=== PATIENT | female | born 1985 | race Caucasian/White ===

== ENCOUNTER 2018-12-05 16:55 | Emergency (ER) | payer MEDICAID ==
[2018-12-05] MEDS ORDERED: ONDANSETRON HCL IV 4 MG/2 ML VIAL IV ONE (17:11)
[2018-12-05] MEDS ORDERED: 0.9 % SODIUM CHLORIDE 1,000 ML BAG IV ONE (17:11)
[2018-12-05] MEDS ORDERED: HYDROMORPHONE HCL 2 MG/ML VIAL IVP ONE (17:11)
--- NOTE | 2018-12-05 17:11 | Emergency Department Record ---
History of Present Illness - General Chief Complaint: Abdominal Pain Stated Complaint: STOMACH PAIN Time Seen by Provider: 12/05/18 17:04 Source: Patient Mode of Arrival: Ambulatory Limitations: No limitations - History of Present Illness Initial Comments: The patient is here due to abdominal pain over the last 4-5 hours. The pain onset was fairly sudden and mainly in the upper abdomen. She has had significant nausea and vomiting with the pain. The patient has had no fever, dysuria, or diarrhea. She did have Gastric Bypass surgery and at the same time a hiatal hernia fixed in september at [facility] by Dr. Adrian. The patient denies any other abdominal surgeries. She also had milder similar pain a week ago but it resolved. MD Complaint: Abdominal pain Onset/Timin -: Hour(s) Associated Symptoms: Vomiting - Related Data Home Medications Medication Instructions Recorded Confirmed Last Taken Hydroxyzine HCl 1 tab PO DAILY 12/05/18 12/05/18 Unknown Lisdexamfetamine Dimesylate 30 mg PO DAILY 12/05/18 12/05/18 Unknown [Vyvanse] Pantoprazole Sodium [Protonix] 40 mg PO DAILY 12/05/18 12/05/18 Unknown Allergies Allergy/AdvReac Type Severity Reaction Status Date / Time bupropion HCl Allergy Intermediate hives Verified 12/05/18 17:08 [From Wellbutrin] Travel Screening - Travel/Exposure Within Last 30 Days Have you traveled within the last 30 days?: No - Travel/Exposure Within Last Year Have you traveled outside the [place] in the last year?: No - Additonal Travel Details Have you been exposed to anyone with a communicable illness?: No - Travel Symptoms Symptom Screening: None Review of Systems Constitutional: Denies: Chills, Fever Eyes: Denies: Eye discharge ENT: Denies: Congestion Respiratory: Denies: Cough, Dyspnea Past Medical History - SOCIAL HISTORY Smoking Status: Never smoker Alcohol Use: None Drug Use: None - RESPIRATORY Hx Respiratory Disorders: No - CARDIOVASCULAR Hx Cardio Disorders: No - NEURO Hx Neuro Disorders: No - GI Hx GI Disorders: Yes Hx Abdominal Pain: Yes Hx Hiatal Hernia: Yes Comment:: gastic bypass - Hx Genitourinary Disorders: No - ENDOCRINE Hx Endocrine Disorders: No - MUSCULOSKELETAL Hx Musculoskeletal Disorders: No - PSYCH Hx Psych Problems: Yes Hx Anxiety: Yes - HEMATOLOGY/ONCOLOGY Hx Hematology/Oncology Disorders: No Family Medical History Any Significant Family History?: No Physical Exam - General General Appearance: Alert, Oriented x3, Cooperative, Mild distress - Head Head exam: Atraumatic, Normocephalic - Eye Eye exam: Normal appearance, PERRL - ENT Throat exam: Normal inspection. negative: Tonsillar erythema, Tonsillar exudate - Neck Neck exam: Normal inspection, Full ROM. negative: Tenderness - Respiratory Respiratory exam: Normal lung sounds bilaterally. negative: Respiratory distress - Cardiovascular Cardiovascular Exam: Regular rate, Normal rhythm, Normal heart sounds - GI/Abdominal GI/Abdominal exam: Soft, Tenderness (There is significant diffuse upper abdominal tenderness.). negative: Rebound, Rigid - Extremities Extremities exam: Normal inspection, Full ROM, Normal capillary refill. negative: Tenderness - Neurological Neurological exam: Alert, Normal gait. negative: Abnormal gait, Motor sensory deficit - Psychiatric Psychiatric exam: Anxious Course - Reevaluation(s) Reevaluation #1: The patient is doing much better at this time. She still does have some pain but it is much improved. I did discuss the plan for obtaining the CT scan with contrast due to the recent gastric bypass. 12/05/18 17:59 Reevaluation #2: The patient continues to feel better with much less pain. Her care will be turned over to Dr. Perry at 18:30 due to shift change. 12/05/18 18:22 Medical Decision Making - Data Complexity MDM Data: Labs Ordered and/or Reviewed - Lab Data Result diagrams: 12/05/18 17:20 12/05/18 17:20 Disposition Forms: Patient Portal Access Quality - Quality Measures Quality Measures: N/A - Blood Pressure Screening View Details: Yes Does Patient Have Any of the Following: No Blood Pressure Classification: Normal BP Reading Systolic Measurement: 104 Diastolic Measurement: 61 Screening for High Blood Pressure: < Normal BP, F/U Not Required > [G8783]
[2018-12-05 17:26] LABS: ABSOLUTE NEUTROPHIL COUNT 9.22; BASO % 0.2 % (0-6); EOS % 0.4 % (0-6); GRAN % 74.7 % (47-80); HEMATOCRIT 42.7 % (35.0-47.0); HEMOGLOBIN 13.3 gm/dl (11.6-16.0); LYMPH % 20.6 % (16-45); MEAN CELL VOLUME 83.1 fl (81-97); MEAN CORPUSCULAR HEMOGLOBIN 25.9 pg (27-33); MEAN CORPUSCULAR HGB CONC 31.1 g/dl (32-36); MONO % 4.1 % (0-9); PLATELET COUNT 470 K/uL (130-400); RED BLOOD COUNT 5.14 M/uL (3.80-5.40); RED CELL DISTRIBUTION WIDTH 15.8 % (11.5-14.5); WHITE BLOOD COUNT W/O DIFF 12.3 K/uL (4.2-12.2)
[2018-12-05 17:41] LABS: BLOOD UREA NITROGEN 10 mg/dL (6-20); CREATININE 0.5 mg/dL (0.5-0.9); EST GLOMERULAR FILTRATION RATE > 60 mL/min
[2018-12-05 17:42] LABS: LIPASE 45 U/L (13-60)
[2018-12-05 17:43] LABS: GLUCOSE,RANDOM 115 mg/dL (74-109)
[2018-12-05 17:46] LABS: ALBUMIN 4.2 g/dL (4.0-5.0); ALKALINE PHOSPHATASE 129 U/L (35-104); ALT/SGPT 63 U/L (<33); AST/SGOT 33 U/L (10.0-35.0); BILIRUBIN,DIRECT 0.3 mg/dL (0-0.3)
[2018-12-05 17:55] LABS: LACTIC ACID 1.2 mmol/L (0.5-2.2)
[2018-12-05] MEDS ORDERED: DICYCLOMINE HCL 10 MG/ML AMPUL IM ONE (21:01)
[2018-12-05] MEDS ORDERED: HYDROCODONE/APAP 5/325MG TABLET PO ONE (21:02)
--- NOTE | 2018-12-05 21:09 | Emergency Department Record ---
History of Present Illness - General Chief Complaint: Abdominal Pain Stated Complaint: STOMACH PAIN Time Seen by Provider: 12/05/18 17:04 Source: Patient Mode of Arrival: Ambulatory Limitations: No limitations - History of Present Illness MD Complaint: Abdominal pain Onset/Timin -: Hour(s) Location: Epigastric Radiation: Back Associated Symptoms: Vomiting - Related Data Patient : No Home Medications Medication Instructions Recorded Confirmed Last Taken Hydroxyzine HCl 1 tab PO DAILY 12/05/18 12/05/18 Unknown Lisdexamfetamine Dimesylate 30 mg PO DAILY 12/05/18 12/05/18 Unknown [Vyvanse] Pantoprazole Sodium [Protonix] 40 mg PO DAILY 12/05/18 12/05/18 Unknown Allergies Allergy/AdvReac Type Severity Reaction Status Date / Time bupropion HCl Allergy Intermediate hives Verified 12/05/18 17:08 [From Wellbutrin] Travel Screening - Travel/Exposure Within Last 30 Days Have you traveled within the last 30 days?: No - Travel/Exposure Within Last Year Have you traveled outside the [place] in the last year?: No - Additonal Travel Details Have you been exposed to anyone with a communicable illness?: No - Travel Symptoms Symptom Screening: None Review of Systems Constitutional: Denies: Chills, Fever Eyes: Denies: Eye discharge ENT: Denies: Congestion Respiratory: Denies: Cough, Dyspnea Past Medical History - SOCIAL HISTORY Smoking Status: Never smoker Alcohol Use: None Drug Use: None - RESPIRATORY Hx Respiratory Disorders: No - CARDIOVASCULAR Hx Cardio Disorders: No - NEURO Hx Neuro Disorders: No - GI Hx GI Disorders: Yes Hx Abdominal Pain: Yes Hx Hiatal Hernia: Yes Comment:: gastic bypass - Hx Genitourinary Disorders: No - ENDOCRINE Hx Endocrine Disorders: No - MUSCULOSKELETAL Hx Musculoskeletal Disorders: No - PSYCH Hx Psych Problems: Yes Hx Anxiety: Yes - HEMATOLOGY/ONCOLOGY Hx Hematology/Oncology Disorders: No Family Medical History Any Significant Family History?: No Physical Exam - General Limitations: No limitations Course Vital Signs 12/05/18 12/05/18 12/05/18 17:09 17:20 17:29 Temperature 97.8 F Pulse Rate [ 104 H Pulse Ox Probe] Respiratory 20 16 16 Rate Blood Pressure 113/87 97/57 104/61 [Left Arm] Blood Pressure [Right Arm] Pulse Ox 97 12/05/18 12/05/18 12/05/18 18:32 19:41 20:52 Temperature Pulse Rate [ 72 81 65 Pulse Ox Probe] Respiratory 16 20 18 Rate Blood Pressure 108/73 [Left Arm] Blood Pressure 126/56 127/79 [Right Arm] Pulse Ox 99 99 99 - Reevaluation(s) Reevaluation #1: 12/05/18 21:04 pt feels better. madelin has pos [facility]. pt offered transfer for [facility]. she wants to wait as she feels much better then she did. she was advised to return for recheck tomorrow or go to facility w us . she was pleased with this plan Reevaluation #2: 12/05/18 21:07 ct was neg for acute process. pt told of ovarian cysts Medical Decision Making - Lab Data Result diagrams: 12/05/18 17:20 12/05/18 17:20 Lab Results 12/05/18 12/05/18 12/05/18 Range/Units 17:11 17:20 17:20 WBC 12.3 H (4.2-12.2) K/uL RBC 5.14 (3.80-5.40) M/uL Hgb 13.3 (11.6-16.0) gm/dl Hct 42.7 (35.0-47.0) % MCV 83.1 (81-97) fl MCH 25.9 L (27-33) pg MCHC 31.1 L (32-36) g/dl RDW 15.8 H (11.5-14.5) % Plt Count 470 H (130-400) K/uL MPV 9.0 (7.4-10.4) fl Gran % 74.7 (47-80) % Lymphocytes % 20.6 (16-45) % Monocytes % 4.1 (0-9) % Eosinophils % 0.4 (0-6) % Basophils % 0.2 (0-6) % Absolute Neutrophils 9.22 Sodium 142 (136-145) mmol/L Potassium 3.5 (3.4-4.5) mmol/L Chloride 102 (98-107) mmol/L Carbon Dioxide 24.0 (22-29) mmol/L Anion Gap 16.0 (7-16) BUN 10 (6-20) mg/dL Creatinine 0.5 (0.5-0.9) mg/dL Estimated GFR > 60 mL/min Random Glucose 115 H (74-109) mg/dL Lactic Acid 1.2 (0.5-2.2) mmol/L Calcium 10.0 (8.6-10.0) mg/dL Total Bilirubin 0.60 (0.2-1.0) mg/dL Direct Bilirubin 0.3 (0-0.3) mg/dL AST 33 (10.0-35.0) U/L ALT 63 H (<33) U/L Alkaline Phosphatase 129 H (35-104) U/L Total Protein 8.0 (6.6-8.7) g/dL Albumin 4.2 (4.0-5.0) g/dL Lipase 45 (13-60) U/L Serum HCG, Qual (NEGATIVE) Urine Color Cancelled Urine Appearance Cancelled Urine pH Cancelled Ur Specific [place] Cancelled Urine Protein Cancelled Urine Glucose (UA) Cancelled Urine Clinitest Cancelled Urine Ketones Cancelled Urine Blood Cancelled Urine Nitrite Cancelled Urine Bilirubin Cancelled Urine Ictotest Cancelled Prot Sulfosalicylic Acd Cancelled Urine Urobilinogen Cancelled Ur Leukocyte Esterase Cancelled 12/05/18 Range/Units 17:20 WBC (4.2-12.2) K/uL RBC (3.80-5.40) M/uL Hgb (11.6-16.0) gm/dl Hct (35.0-47.0) % MCV (81-97) fl MCH (27-33) pg MCHC (32-36) g/dl RDW (11.5-14.5) % Plt Count (130-400) K/uL MPV (7.4-10.4) fl Gran % (47-80) % Lymphocytes % (16-45) % Monocytes % (0-9) % Eosinophils % (0-6) % Basophils % (0-6) % Absolute Neutrophils Sodium (136-145) mmol/L Potassium (3.4-4.5) mmol/L Chloride (98-107) mmol/L Carbon Dioxide (22-29) mmol/L Anion Gap (7-16) BUN (6-20) mg/dL Creatinine (0.5-0.9) mg/dL Estimated GFR mL/min Random Glucose (74-109) mg/dL Lactic Acid (0.5-2.2) mmol/L Calcium (8.6-10.0) mg/dL Total Bilirubin (0.2-1.0) mg/dL Direct Bilirubin (0-0.3) mg/dL AST (10.0-35.0) U/L ALT (<33) U/L Alkaline Phosphatase (35-104) U/L Total Protein (6.6-8.7) g/dL Albumin (4.0-5.0) g/dL Lipase (13-60) U/L Serum HCG, Qual Negative (NEGATIVE) Urine Color Urine Appearance Urine pH Ur Specific [place] Urine Protein Urine Glucose (UA) Urine Clinitest Urine Ketones Urine Blood Urine Nitrite Urine Bilirubin Urine Ictotest Prot Sulfosalicylic Acd Urine Urobilinogen Ur Leukocyte Esterase Disposition Disposition: Discharge Clinical Impression: Biliary colic Disposition: Home, Self-Care Condition: (1) Good Instructions: Abdominal Pain (ED), Biliary Colic (ED) Additional Instructions: follow up for recheck tomorrow. return sooner if worse Forms: Patient Portal Access Quality - Quality Measures Quality Measures: N/A - Blood Pressure Screening Does Patient Have Any of the Following: No Blood Pressure Classification: Pre-Hypertensive BP Reading Systolic Measurement: 127 Diastolic Measurement: 79 Screening for High Blood Pressure: < Pre-Hypertensive BP, F/U Documented > [G8950] Pre-Hypertensive Follow-up Interventions: Follow-up with rescreen every year.
--- NOTE | 2018-12-07 20:43 | CT SCAN REPORT ---
EXAM: CT SCAN ABDOMEN/PELVIS W CONTRAST HISTORY: UPPER ABDOMINAL PAIN. HISTORY OF GASTRIC BYPASS SURGERY. HIATAL HERNIA REPAIR. TECHNIQUE: Axial CT scan of the abdomen and pelvis obtained following both oral or IV contrast administration. Please see the medical record for contrast specifics. COMPARISON: None. FINDINGS: No calcified gallstones are seen within the gallbladder. No definite hepatic mass seen. Slight low attenuation near the falciform ligament is commonly seen as a developmental variant related to variable perfusion in this location. No definite splenic, adrenal, pancreatic, or renal mass identified. Post-op changes involving the stomach. Appendix visualized and appears negative with no appendicitis evident. There does appear to be a small mass about 1.4 cm in size lateral to the right side of the uterus, which is probably within the right ovary. This contains some fat density with a CT density of -69 and is likely a small dermoid. There is probably a dominant cyst in the left ovary approximately 2.5 cm in size. Tiny umbilical hernia containing adipose tissue but no bowel. No definite free intraperitoneal air or free intraperitoneal fluid identified. Some facet joint arthropathy in the lower lumbar spine. Mild spurring in the lower thoracic spine. There is probably a small vertebral body hemangioma in the body of what is presumably T7. IMPRESSION: 1. POST-OP CHANGES INVOLVING THE STOMACH. 2. SMALL UMBILICAL HERNIA CONTAINING ADIPOSE TISSUE BUT NO BOWEL. 3. APPENDIX APPEARS NEGATIVE. NO FREE AIR OR FREE FLUID EVIDENT. 4. PROBABLE SMALL DERMOID RIGHT OVARY AND DOMINANT FOLLICLE LEFT OVARY. JOB NUMBER: [id number] MTDD
== END 2018-12-05 21:45 | disposition home or self-care (01) ==
LOC: ER 16:55
DX: K80.50 Calculus of bile duct without cholangitis or cholecystitis without obstruction (principal); R11.2 Nausea with vomiting, unspecified; Z98.84 Bariatric surgery status
CPT/HCPCS: 99284 ×2; 96374; 96372; 96375; 96361; 83605; 83690; 85025; 80076; 80048; 84703; 74177; Q9967; J2405; J1170; J7030